=== PATIENT | male | born 1985 | race African-American/Black ===

== ENCOUNTER 2018-10-30 08:24 | Emergency (ER) | payer BC, SELFPAY | END 2018-10-30 08:42 | disposition home or self-care (01) | LOC: ERS 08:24 | DX: J06.9 Acute upper respiratory infection, unspecified (principal); H66.92 Otitis media, unspecified, left ear; F17.210 Nicotine dependence, cigarettes, uncomplicated; Z71.6 Tobacco abuse counseling | CPT/HCPCS: 99406 ==

== ENCOUNTER 2019-06-05 10:08 | Emergency (ER) | payer SELFPAY ==
[2019-06-05] MEDS ORDERED: Ondansetron ODT 4 MG TAB ONE (11:41)
== END 2019-06-05 12:56 | disposition left against medical advice (07) ==
LOC: ERS 10:08
DX: Z53.21 Procedure and treatment not carried out due to patient leaving prior to being seen by health care provider (principal)
CPT/HCPCS: Q0162

== ENCOUNTER 2019-06-06 09:20 | Observation (INO) | payer SELFPAY ==
[2019-06-06] MEDS ORDERED: Ondansetron PF 4 MG/2 ML Vial ONE (10:11)
[2019-06-06 10:34] LABS: #Basophils 0.1 thou/uL (0.0-0.2); #Eosinphils 0.1 thou/uL (0.0-0.7); #Lymphocytes 1.8 thou/uL (1.20-3.40); #Monocytes 0.6 thou/uL (0.11-0.59); #Neutrophils 7.5 thou/uL (1.40-6.50); %Basophils 0.7 % (0.0-1.0); %Eosinophils 1.2 % (0.0-10.0); %Lymphocytes 17.6 % (21.0-51.0); %Monocytes 6.2 % (0.0-10.0); %Neutrophils 74.4 % (42.0-75.0); Hemoglobin 14.8 g/dL (14.0-18.0); Mean Corpuscular HGB CONC 32.2 g/dL (32.0-36.0); Mean Corpuscular Hemoglobin 30.2 pg (27.0-31.0); Mean Platelet Volume 7.1 fL (7.4-10.4); Platelet Count 218 thou/uL (130-400); RBC Distribution Width 12.5 % (11.5-14.5); Red Blood Cell (RBC) Count 4.88 mill/uL (4.70-6.10)
[2019-06-06 11:00] LABS: ALT (SGPT) 51 U/L (8-55); AST (SGOT) 92 U/L (5-34); Albumin 4.1 g/dL (3.5-5.0); Alkaline Phosphatase 69 U/L (40-150); Anion Gap 10 mmol/L (10-20); BUN (Urea Nitrogen) 8 mg/dL (8.9-20.6); Bilirubin, Total 0.5 mg/dL (0.2-1.2); CK (CPK) 2147 U/L (30-200); Calc. Creatinine Clearance 0 mL/min (70-130); Calcium 9.1 mg/dL (7.8-10.44); Carbon Dioxide 29 mmol/L (22-29); Chloride 102 mmol/L (98-107); Estimated GFR-MDRD 69; Globulin 2.4 g/dL (2.4-3.5); Glucose 84 mg/dL (70-105); Potassium 4.7 mmol/L (3.5-5.1); Protein, Total 6.5 g/dL (6.0-8.3); Sodium 136 mmol/L (136-145)
[2019-06-06] MEDS ORDERED: Senokot S 8.6-50 MG TAB PO PRN (12:32)
[2019-06-06] MEDS ORDERED: HYDROcodone/Acetaminophen 5/325 mg Tablet PO PRN (12:32)
[2019-06-06] MEDS ORDERED: Ondansetron ODT 4 MG TAB PO PRN (12:32)
[2019-06-06] MEDS ORDERED: Acetaminophen 325 MG TAB PO PRN (12:32)
[2019-06-06 13:03] VITALS: BMI 27.1
[2019-06-06] MEDS: Sodium Chloride 0.9% 1,000 ML IV SCH ×2 (13:09→23:04)
--- NOTE | 2019-06-06 13:43 | HP ---
This is BRIGITTE Govea dictating a report for Andre Ramos MD. PRIMARY CARE PHYSICIAN: None. CHIEF COMPLAINT: Nausea, vomiting. HISTORY OF PRESENT ILLNESS: Mr. Vargas is a 33-year-old man, who reported to the emergency room today for evaluation of 3 days of nausea, vomiting, and diarrhea. He denies any abdominal pain. Denies any fever or chills. Reports that he was here yesterday for nausea, vomiting, and reports the diarrhea started after. Denies any antibiotic use within the last 30 to 60 days. Reports that he feels better after he was given some medicine today and is now hungry. In the emergency room, lab values pertinent for creatinine of 1.41, there is no baseline on file; AST is 92; and CK is 2147. So, the patient was admitted to the observation unit for fluid resuscitation and monitoring. PAST MEDICAL HISTORY: The patient reports that mother told him that he had a hole in his heart when he was a baby, but he has never had that evaluated. Denies any other medical history. Denies any surgical history. Denies any psych history. SOCIAL HISTORY: Drinks socially. Denies drug use. Smokes cigarettes. Smokes about a half a pack a day and has for the past 5 years. KNOWN ALLERGIES: None. CURRENT MEDICATIONS: None. REVIEW OF SYSTEMS: The patient reports nausea, vomiting, and diarrhea. Denies any abdominal pain, chills, or fever. Denies any ill contacts. Denied eating anything different over the weekend that would account for some GI distress. All other systems were reviewed and are negative unless mentioned in the HPI. PHYSICAL EXAMINATION: VITAL SIGNS: Blood pressure 130/84, pulse 62, respirations 18, temperature is 98.3, pO2 sats are 99% on room air. CONSTITUTIONAL: The patient is nontoxic appearing. He is oriented to person, place, and time. HEAD: Atraumatic and normocephalic. EYES: Pupils are equal, round, and reactive. Sclerae are normal. ENT: Mouth exam is normal. Mucous membranes are moist. NECK: Normal range of motion. Trachea is midline. RESPIRATORY/CHEST: Breath sounds are clear. No respiratory distress is noted. CARDIOVASCULAR: Heart rate, regular rate and rhythm. Heart sounds are normal. ABDOMEN: Nontender. Bowel sounds are heard. BACK: Normal range of motion. No CVA tenderness. EXTREMITIES: Upper extremities; normal inspection, normal strength, normal range of motion, radial pulses normal. Lower extremities; normal inspection; normal range of motion; strength is normal; pedal pulses are normal. SKIN: Warm, dry, and normal in color. PSYCHIATRIC: Has a normal affect. PLAN AND ASSESSMENT: 1. Rhabdomyolysis, context of gastrointestinal distress, potentially viral illness with nausea, vomiting, and diarrhea for the last 3 days. We will hydrate normal saline at 100 mL/hour. We will recheck CK later today and in the morning. Offer antiemetics as needed. 2. Possible acute kidney injury. We will plan the same as in #1. We will recheck function in the morning. 3. Gastrointestinal and deep venous thrombosis prophylaxis have been started. Case was discussed with Dr. Ramos, who agrees with plan. Job ID: [id number]
[2019-06-07 05:11] LABS: #Basophils 0.1 thou/uL (0.0-0.2); #Eosinphils 0.2 thou/uL (0.0-0.7); #Lymphocytes 2.1 thou/uL (1.20-3.40); #Monocytes 0.5 thou/uL (0.11-0.59); %Basophils 0.7 % (0.0-1.0); %Eosinophils 2.3 % (0.0-10.0); %Lymphocytes 26.2 % (21.0-51.0); %Monocytes 6.8 % (0.0-10.0); Hemoglobin 13.3 g/dL (14.0-18.0); Mean Corpuscular HGB CONC 32.1 g/dL (32.0-36.0); Mean Corpuscular Hemoglobin 30.4 pg (27.0-31.0); Mean Corpuscular Volume 94.8 fL (78.0-98.0); Mean Platelet Volume 7.3 fL (7.4-10.4); Platelet Count 187 thou/uL (130-400); RBC Distribution Width 12.3 % (11.5-14.5); Red Blood Cell (RBC) Count 4.36 mill/uL (4.70-6.10); White Blood Cell (WBC) Count 7.8 thou/uL (4.8-10.8)
[2019-06-07 05:26] LABS: Phosphorus 3.4 mg/dL (2.3-4.7)
[2019-06-07 05:31] LABS: Anion Gap 9 mmol/L (10-20); BUN (Urea Nitrogen) 10 mg/dL (8.9-20.6); CK (CPK) 1114 U/L (30-200); Calc. Creatinine Clearance 103 mL/min (70-130); Calcium 8.1 mg/dL (7.8-10.44); Carbon Dioxide 25 mmol/L (22-29); Chloride 109 mmol/L (98-107); Estimated GFR-MDRD 78; Glucose 101 mg/dL (70-105); Magnesium 1.6 mg/dL (1.6-2.6); Potassium 3.9 mmol/L (3.5-5.1); Sodium 139 mmol/L (136-145)
[2019-06-07 08:08] VITALS: BP 124/86; TEMP 98.4
[2019-06-07] MEDS ORDERED: Famotidine 20 MG TAB PO SCH (09:00)
[2019-06-07] MEDS: Sodium Chloride 0.9% 1,000 ML IV SCH (10:03)
--- NOTE | 2019-06-07 19:23 | DIS ---
DATE OF ADMISSION: 06/06/2019 DATE OF DISCHARGE: 06/07/2019 DISCHARGE DISPOSITION: Home. FOLLOWUP: 1. Follow up with primary care physician at [facility] in 1 week. 2. Repeat basic metabolic profile as well as CK after 1 week is recommended. Primary care physician advised to follow. ALLERGIES: NO KNOWN DRUG ALLERGIES. DISCHARGE MEDICATION: None. The patient was seen and examined on the day of discharge. Denies any new complaints. No chest pain, shortness of breath, or palpitations reported. SIGNIFICANT LABORATORY DATA: CK on admission 2147, at discharge 1114. Creatinine on admission was 1.41, at discharge 1.28. Hemoglobin 13.3, hematocrit 41.3. INPATIENT CONSULTANTS: None. BRIEF HOSPITAL COURSE: The patient is a 33-year-old male who presented to the emergency room with nausea and vomiting along with diarrhea of 3 days duration. Please refer to the history and physical for further details. The patient was admitted to the hospital with a diagnosis of acute kidney injury along with rhabdomyolysis, probably due to muscle exertion. His creatinine on admission was 1.41, that improved to 1.28 after IV hydration. His CK at discharge was 1114. Nausea, vomiting, and abdominal pain has completely resolved. The patient is tolerating oral consistency. He was advised to maintain adequate oral intake. He will require a repeat labs after 1 week. FINAL DIAGNOSES: 1. Acute kidney injury secondary to dehydration. 2. Nausea, vomiting, and diarrhea, suspected acute gastroenteritis, resolved. 3. Rhabdomyolysis, probably secondary to muscle exertion, improved. Repeat CK after 1 week is recommended. 4. Chronic anemia. 5. Chronic kidney disease, stage 2. 6. Ongoing tobacco abuse. The patient was counseled. PLAN: Plan of care was discussed with the patient in detail. He stated understanding. Job ID: [id number]
== END 2019-06-07 10:15 | disposition home or self-care (01) ==
LOC: ERS 09:20 → 2SW 11:34
PROVIDERS: ADMIT Internal Medicine; ATTEND Internal Medicine
DX: E86.0 Dehydration (principal); N17.9 Acute kidney failure, unspecified; M62.82 Rhabdomyolysis; F17.210 Nicotine dependence, cigarettes, uncomplicated; N18.2 Chronic kidney disease, stage 2 (mild); D63.1 Anemia in chronic kidney disease
CPT/HCPCS: 36415; 80048; 80053; 82550; 83735; 84100; 84443; 85025; 96361; 96374; G0378; J2405

== ENCOUNTER 2024-09-01 14:53 | Emergency (ER) | payer SELFPAY ==
[2024-09-01] MEDS ORDERED: Ibuprofen 200 MG TAB ONE (15:17)
== END 2024-09-01 15:48 | disposition home or self-care (01) ==
LOC: ERS 14:53
DX: M19.042 Primary osteoarthritis, left hand (principal); I10 Essential (primary) hypertension; F17.210 Nicotine dependence, cigarettes, uncomplicated
CPT/HCPCS: 29125; 99283